=== PATIENT | male | born 1955 | race Caucasian/White ===

== ENCOUNTER 2019-03-15 08:23 | Day surgery (SDC) | payer BC ==
[2006-10-12 15:40] VITALS: BP 110/68
[~2019-03-15] VITALS: Ht 170.2 cm; Wt 84.6 kg
[~2019-03-15 08:23] MED LIST: NORCO 325 MG-51 TAB PO
[2019-03-15 08:50] VITALS: BP 138/86; PULSE 71; TEMP 98.3
[2019-03-15] MEDS ORDERED: PRAVACHOL10 MG PO (08:52)
[2019-03-15] MEDS ORDERED: PRILOSEC 20MG20 MG PO (10:41)
[2019-03-15 10:50] VITALS: BP 121/85; PULSE 78; TEMP 98.5
--- NOTE | 2019-03-15 10:50 | NUR ---
Patient brought back to [facility]. Alert and oriented. Vital signs WNL. Denies any pain or nausea. Requesting soda and a muffin. No difficulties with swallowing. Son Tim at bedside. Call kumari within reach, will continue to monitor.
[2019-03-15 11:05] VITALS: BP 113/89; PULSE 83
--- NOTE | 2019-03-15 11:05 | NUR ---
Patient states he is feeling well. Vital signs stable. Requesting second muffin. Tolerating food and drink well.
[2019-03-15 11:20] VITALS: BP 122/81; PULSE 74
--- NOTE | 2019-03-15 11:20 | NUR ---
Vital signs stable. Patient requesting to go home at this time. Discharge instructions reviewed with patient and son Tim. IV removed per orders. Follow up appointment made with Dr. Foreman for May 16 2019 per MD request. Patient to get dressed at this time.
--- NOTE | 2019-03-15 11:40 | NUR ---
Patient wheeled down to lobby. Son to drive patient home.
== END 2019-03-15 11:20 | disposition home or self-care (01) ==
LOC: SDCO 08:23
DX: Z86.010 Personal history of colon polyps (principal); Z85.828 Personal history of other malignant neoplasm of skin; K64.0 First degree hemorrhoids; K57.30 Diverticulosis of large intestine without perforation or abscess without bleeding; K22.2 Esophageal obstruction; K29.30 Chronic superficial gastritis without bleeding; R13.10 Dysphagia, unspecified; E78.5 Hyperlipidemia, unspecified; Z79.899 Other long term (current) drug therapy
CPT/HCPCS: 43239; 43249; G0105; C1726; J2250; J2405; J3010; J7030

== ENCOUNTER → 2021-01-31 | Outpatient (CLI) | payer MEDICARE ==
[~2021-01-31] MED LIST changes: +ASPIRIN 81M81 MG/TA2 PO; +ELIQUIS 5MG PO; +ONE-A-DAY ESSE1 EACH PO; +PRAVACHOL10 MG PO; +PRILOSEC 20MG20 MG PO; +TOPROL XL 50MG50 MG PO
== END ==
LOC: ZCOL.LAB 16:48
DX: R60.0 Localized edema (principal)

== ENCOUNTER 2021-04-21 09:30 | Emergency (ER) | payer MEDICARE, OTHER ==
[2006-10-12 15:40] VITALS: BP 110/68
[~2021-04-21] VITALS: Ht 170.2 cm; Wt 86.4 kg
[~2021-04-21 09:30] MED LIST changes: -ASPIRIN 81M81 MG/TA2 PO; -ELIQUIS 5MG PO; -ONE-A-DAY ESSE1 EACH PO; -TOPROL XL 50MG50 MG PO
[2021-04-21] MEDS ORDERED: TOPROL XL 50MG50 MG PO (10:04)
[2021-04-21] MEDS ORDERED: ASPIRIN 81M81 MG/TA2 PO (10:30)
[2021-04-21] MEDS ORDERED: ONE-A-DAY ESSE1 EACH PO (10:30)
[2021-04-21 11:09] LABS: BASO # 0.1 (0.0-0.2); BASO % 0.5 % (0.0-2.0); EOS # 0.1 (0.0-0.7); EOS % 1.2 % (0-4.0); GRAN # 7.7 (1.4-6.5); GRAN % 73.4 % (42.2-75.2); HEMATOCRIT 45.6 % (42.0-52.0); HEMOGLOBIN 15.4 g/dl (13.5-18.0); LYMPH # 1.6 (1.2-3.4); LYMPH % 15.4 % (20.0-51.0); MEAN CELL VOLUME 92 fl (80.0-100.0); MEAN CORPUSCULAR HEMOGLOBIN 31 pg (27.0-31.0); MEAN CORPUSCULAR HGB CONC 34 g/dl (33.0-37.0); MEAN PLATELET VOLUME 10.5 fl (7.4-10.4); MONO % 9.2 % (1.7-9.3); PLATELET COUNT 214 K/mm3 (130-400); RED BLOOD COUNT 4.98 M/mm3 (4.20-5.60); REDCELL DISTRIBUTION WIDTH-CV 12.7 % (11.5-14.5)
[2021-04-21 11:24] LABS: ALBUMIN 3.7 gm/dL (3.5-5.0); BILIRUBIN,TOTAL 1.1 mg/dL (0.0-1.0); CREATININE, serum 1.04 (0.66-1.25); POTASSIUM 3.9 mmol/L (3.4-5.0); TOTAL PROTEIN 6.8 gm/dL (6.4-8.2)
[2021-04-21] MEDS ORDERED: NORCO 325 MG-51 TAB PO (12:34)
[2021-04-21] MEDS ORDERED: ELIQUIS 5MG PO (12:34)
[2021-04-21 12:50] VITALS: BP 166/94; PULSE 73; TEMP 98.3
== END 2021-04-21 12:53 | disposition home or self-care (01) ==
LOC: COL.ER 09:30
PROVIDERS: Nurse Practitioner
DX: M25.571 Pain in right ankle and joints of right foot (principal); I10 Essential (primary) hypertension; E78.5 Hyperlipidemia, unspecified; R79.1 Abnormal coagulation profile; Z86.718 Personal history of other venous thrombosis and embolism; Z87.891 Personal history of nicotine dependence

== ENCOUNTER → 2021-04-22 | Outpatient (CLI) | payer MEDICARE, OTHER ==
[~2021-04-22] MED LIST changes: +ASPIRIN 81M81 MG/TA2 PO; +ELIQUIS 5MG PO; +ONE-A-DAY ESSE1 EACH PO; +TOPROL XL 50MG50 MG PO
== END ==
LOC: COL.VAS 09:23
DX: I82.461 Acute embolism and thrombosis of right calf muscular vein (principal)

== ENCOUNTER → 2021-09-24 | Outpatient (CLI) | payer MEDICARE, OTHER | LOC: COL.VAS 10:38 | DX: I82.491 Acute embolism and thrombosis of other specified deep vein of right lower extremity (principal) ==

== ENCOUNTER → 2021-10-11 | Outpatient (CLI) | payer MEDICARE, OTHER | LOC: COL.RAD 09:58 | DX: R10.31 Right lower quadrant pain (principal) ==

== ENCOUNTER → 2024-01-12 | Outpatient (CLI) | payer MEDICARE | LOC: COL.RAD 14:58 | DX: R13.10 Dysphagia, unspecified (principal) ==